=== PATIENT | female | born 1995 | race African-American/Black ===

== ENCOUNTER 2018-05-19 12:34 | Emergency (ER) | payer OTHER ==
[2018-05-19 12:57] VITALS: BP 102/63; PULSE 100; TEMP 98.9; BMI 21.5
[2018-05-19] MEDS ORDERED: AMOXICILLIN 500 MG CAPSULE (FP) PO ONE (13:30)
[2018-05-19] MEDS ORDERED: AMOXICILLIN 250 MG CAPSULE ONE (13:31)
--- NOTE | 2018-05-19 13:35 | PDOC ---
History of Present Illness - General Chief Complaint: Pain Stated Complaint: PAIN Time Seen by Provider: 05/19/18 13:17 - History of Present Illness Initial Comments: 05/19/18 13:30 23-year-old female with a history of atrial septal defect just underwent open- heart surgery presents for evaluation of left-sided facial swelling times one day without systemic symptoms Past History - Past Medical History Allergies/Adverse Reactions: Allergies Allergy/AdvReac Type Severity Reaction Status Date / Time coconut oil Allergy Verified 05/19/18 12:39 naproxen Allergy Verified 05/19/18 12:39 mortin and alieve Allergy Mild Itching Uncoded 05/19/18 12:39 Home Medications: Ambulatory Orders Amoxicillin - [Amoxicillin 500mg Capsule -] 500 mg PO BID #20 capsule 05/19/18 Asthma: No Cancer: No Cardiac Disorders: Yes (murmur) COPD: No Diabetes: No HTN: No Seizures: No Thyroid Disease: No - Surgical History Cardiac Surgery: Yes (lt artoa) - Reproductive History (#): 1 Para: 0 Therapeutic (s) & number: No Spontaneous : 0 - Immunization History Immunization Up to Date: Yes - Suicide/Smoking/Psychosocial Hx Smoking History: Current some day smoker Have you smoked in the past 12 months: Yes Number of Cigarettes Smoked Daily: 0 Cigars Per Day: 0 Information on smoking cessation initiated: No Hx Alcohol Use: No Drug/Substance Use Hx: No Substance Use Type: Marijuana Hx Substance Use Treatment: No Review of Systems - Review of Systems Constitutional: No: Chills, Fever, Malaise, Night Sweats HEENTM: Yes: Dental Problems, Mouth Swelling *Physical Exam - Vital Signs Last Vital Signs Temp Pulse Resp BP Pulse Ox 98.9 F 100 H 18 102/63 100 05/19/18 12:40 05/19/18 12:40 05/19/18 12:40 05/19/18 12:40 05/19/18 12:40 - Physical Exam Comments: 05/19/18 13:31 HEAD: NC/AT EYES: Conjuntiva clear Ears: Canals and TM's normal NOSE: No d/c THROAT: Moist mucous membrances, oral pharanx clear, uvula midline, poor dentition multiple caries and missing teeth there is an erythemic nonfluctuant tender area about the left lower gingiva NECK: Supple without adenopathy CARDIAC: S1 S2 LUNGS: CTA Full and Equal breath sounds ABDOMEN: Soft NT ND MS: Full ROM in all joints without edema NEUROLOGIC: No gross sensory or motor deficits, NVID SKIN: Normal color and temperature no lesions or rashes *DC/Admit/Observation/Transfer Diagnosis at time of Disposition: Dental abscess - Discharge Dispostion Disposition: HOME Condition at time of disposition: Stable Decision to Admit order: No - Referrals Referrals: Urgent Care [facility] [Outside] - Patient Instructions Printed Discharge Instructions: DI for Tooth Decay, Tooth Abscess Additional Instructions: Please take the antibiotics as directed. Given your underlying cardiac condition it's extremely important that you get your abscess taking care of immediately please report to urgent care dental today without fail and take the antibiotics as directed. You're given initial dose of antibiotics in the emergency room today - Post Discharge Activity
== END 2018-05-19 13:41 | disposition home or self-care (01) ==
LOC: JER 12:34 → JERFT 12:34
DX: K04.7 Periapical abscess without sinus (principal); R01.1 Cardiac murmur, unspecified
CPT/HCPCS: 99281-25

== ENCOUNTER 2019-07-09 20:05 | Emergency (ER) | payer OTHER ==
[2019-07-09 20:21] VITALS: BP 101/57; PULSE 89; TEMP 97.8; BMI 25.4
--- NOTE | 2019-07-09 21:16 | PDOC ---
History of Present Illness - General Chief Complaint: Eye Problem Stated Complaint: POSSIBLE PINK EYE Time Seen by Provider: 07/09/19 20:45 - History of Present Illness Initial Comments: 07/09/19 21:18 Chief complaint: Eye discharge Patient is 24-year-old female with a history of valvular disease who states that her left eye had a bump under it which popped and now she has discharge to the eye which is now starting in the right eye. No visual issues. Patient does not wear contacts. Patient denies any injury GENERAL/CONSTITUTIONAL: No fever, weakness. dizziness HEAD, EYES, EARS, NOSE AND THROAT: No change in vision. + Eye discharge, no ear pain or discharge. No sore throat. CARDIOVASCULAR: No chest pain RESPIRATORY: No shortness of breath or cough GASTROINTESTINAL: No pain, nausea, vomiting, diarrhea or constipation GENITOURINARY: No dysuria MUSCULOSKELETAL: No neck or back pain SKIN: No rash NEUROLOGIC: No headache, vertigo, loss of consciousness, or loss of sensation. GENERAL: The patient is awake, alert, and fully oriented, in no acute distress. HEAD: Normal with no signs of trauma. EYES: Pupils equal, round and reactive to light, sclera anicteric, conjunctiva slightly injected, some crusting to the eye lids, no swelling or stye under the eyelid ENT: pharynx: no erythema, no exudate, uvula midline NECK: supple CHEST: clear, nontender, rr ABD: soft, nontender BACK: no tenderness or signs of injury EXTREMITIES: Normal range of motion, no edema. NEUROLOGICAL: Normal speech, normal gait. SKIN: Warm, Dry Past History - Past Medical History Allergies/Adverse Reactions: Allergies Allergy/AdvReac Type Severity Reaction Status Date / Time coconut oil Allergy Verified 07/09/19 20:18 naproxen Allergy Verified 07/09/19 20:18 mortin and alieve Allergy Mild Itching Uncoded 07/09/19 20:18 Home Medications: Ambulatory Orders Amoxicillin - [Amoxicillin 500mg Capsule -] 500 mg PO BID #20 capsule 05/19/18 Polymyxin B Sulfate/Tmp [Polytrim Opthalmic Solution -] 1 drop OP Q4H #1 bot 10/23 Asthma: No Cancer: No Cardiac Disorders: Yes (murmur) COPD: No Diabetes: No HTN: No Seizures: No Thyroid Disease: No - Surgical History Cardiac Surgery: Yes (lt artoa) - Reproductive History (#): 1 Para: 0 Therapeutic (s) & number: No Spontaneous : 0 - Immunization History Immunization Up to Date: Yes - Psycho Social/Smoking Cessation Hx Smoking History: Never smoked Have you smoked in the past 12 months: No Number of Cigarettes Smoked Daily: 0 Cigars Per Day: 0 Information on smoking cessation initiated: No Hx Alcohol Use: No Drug/Substance Use Hx: No Substance Use Type: Marijuana Hx Substance Use Treatment: No *Physical Exam - Vital Signs Last Vital Signs Temp Pulse Resp BP Pulse Ox 97.8 F 89 18 101/57 L 100 07/09/19 20:19 07/09/19 20:19 07/09/19 20:19 07/09/19 20:19 07/09/19 20:19 Medical Decision Making - Medical Decision Making 07/09/19 21:19 24-year-old female with valvular disease was discharged to the left eye, now starting in the right eye. No fever and otherwise well. Does not wear contacts or have any other complaints no visual issues. Patient will be prescribed topical antibiotics. Discussed issues, findings, results, applicable medications and treatments and follow-up. All these were understood and all questions were answered Discharge - Discharge Information Problems reviewed: Yes Clinical Impression/Diagnosis: Conjunctivitis Qualifiers: Conjunctivitis type: acute Acute conjunctivitis type: bacterial Laterality: bilateral Qualified Code(s): H10.33 - Unspecified acute conjunctivitis, bilateral Condition: Stable Disposition: HOME - Admission No - Additional Discharge Information Prescriptions: Polymyxin B Sulfate/Tmp [Polytrim Opthalmic Solution -] 1 drop OP Q4H #1 bot - Follow up/Referral - Patient Discharge Instructions Patient Printed Discharge Instructions: Conjunctivitis Additional Instructions: Use the drops to both eyes every 4 hours for 5 to 7 days See the eye doctor if he gets worse instead of better Return to the ER if fever or feeling sicker - Post Discharge Activity
== END 2019-07-09 21:20 | disposition home or self-care (01) ==
LOC: JERFT 20:05
DX: H10.33 Unspecified acute conjunctivitis, bilateral (principal); Z88.6 Allergy status to analgesic agent
CPT/HCPCS: 99281-25